=== PATIENT | female | born 1960 | race Caucasian/White ===

== ENCOUNTER → 2017-06-30 10:02 | Outpatient (CLI) | payer OTHER, SELFPAY ==
[2017-06-30 12:28] LABS: Anion Gap 6 (5-15); BUN 10 mg/dL (7-18); BUN/Creat Ratio 15.3 RATIO (10-20); Calcium,Total 9.3 mg/dL (8.5-10.1); Chloride 100 mmol/L (98-107); Creatinine, Serum 0.65 mg/dL (0.55-1.02); EST Glomerular Filtration Rate 99 mL/min (>60); Est Glom Filt Rate - Afr Amer 120 mL/min (>60); Free T3 2.7 pg/mL (2.18-3.98); Glucose 95 mg/dL (74-106); Sodium Level 137 mmol/L (136-145); T4 Free Direct 1.24 ng/dL (0.76-1.46); Thyroid Stim Hormone (TSH) < 0.01 uIU/mL (0.358-3.74)
== END ==
PROVIDERS: Family Provider Family Medicine; PCP Family Medicine; Visit Provider Family Medicine
DX: I10 Essential (primary) hypertension (principal); E03.9 Hypothyroidism, unspecified
CPT/HCPCS: 36415; 80048; 84439; 84443; 84481

== ENCOUNTER → 2019-01-23 11:16 | Outpatient (CLI) | payer OTHER, SELFPAY ==
[2018-07-08 08:02] VITALS: BMI 21.9
[2019-01-23 12:32] LABS: Microalbumin,Random Urine < 5.0 mg/L (NO RANGE EST.)
[2019-01-23 12:47] LABS: Anion Gap 3 (5-15); BUN 12 mg/dL (7-18); BUN/Creat Ratio 14.7 RATIO (10-20); Chloride 99 mmol/L (98-107); Cholesterol 317 mg/dL (200); Creatinine, Serum 0.82 mg/dL (0.55-1.02); EST Glomerular Filtration Rate 76 mL/min (>60); Est Glom Filt Rate - Afr Amer 92 mL/min (>60); Free T3 1.3 pg/mL (2.18-3.98); Glucose 94 mg/dL (74-106); High Density Lipoprotein 74 mg/dL; Potassium 3.3 mmol/L (3.5-5.1); Sodium Level 135 mmol/L (136-145); T4 Free Direct 0.32 ng/dL (0.76-1.46)
== END ==
PROVIDERS: Family Provider Family Medicine; PCP Family Medicine; Referring Provider Family Medicine; Visit Provider Family Medicine
DX: I10 Essential (primary) hypertension (principal); E03.9 Hypothyroidism, unspecified
CPT/HCPCS: 36415; 80048; 82043; 82465; 82570; 83718; 84439; 84443; 84481

== ENCOUNTER → 2019-04-04 15:53 | Outpatient (CLI) | payer OTHER, SELFPAY ==
[2018-07-08 08:02] VITALS: BMI 21.9
[2019-04-04 20:27] LABS: Absolute Neutrophil Count 3.3 X10^3/uL (2.0-7.7); Basophil# 0.07 X10^3/uL; Basophil% 1.2 % (0-1); Eosinophil# 0.13 X10^3/uL; Eosinophils% 2.2 % (0-5); Hematocrit 37.3 % (37-47); Hemoglobin 12.7 g/dL (12.0-15.0); Lymphocyte % 30.3 % (19-41); Mean Corpuscular Hgb 31.6 pg (27.0-32.0); Mean Corpuscular Volume 92.8 fL (81-99); Mean Platelet Vol. 9.7 fl (6.2-12.0); Monocyte# 0.61 X10^3/uL; Monocyte% 10.3 % (0-10); NRBC Flagged by Analyzer 0 % (0-5); Neutrophil # 3.33 X10^3/uL (2.7-7.7); Neutrophil % 55.8 % (47-70); Platelet Count 276 K/mm3 (150-450); RBC Distribution Width CV 11.8 % (11.6-14.6); RBC Distribution Width SD 39.7 fl (35.1-43.9); Red Blood Count 4.02 M/mm3 (4.2-5.4)
[2019-04-04 21:12] LABS: Rheumatoid Factor < 10.0 IU/mL (<15)
[2019-04-05 13:20] LABS: T4 Free Direct 1.13 ng/dL (0.76-1.46); Thyroid Stim Hormone (TSH) 1.14 uIU/mL (0.358-3.74)
[2019-04-06 15:09] LABS: ANTINUCLEAR ANTIBODIES DIRECT Negative (Negative)
== END ==
LOC: LAB.FUTURE 15:56 → LAB 04-05 12:35
PROVIDERS: PCP Family Medicine; Referring Provider Family Medicine; Visit Provider Family Medicine
DX: M25.50 Pain in unspecified joint (principal); E03.9 Hypothyroidism, unspecified
CPT/HCPCS: 36415; 84439; 84443; 85025; 86038; 86431

== ENCOUNTER 2019-08-05 16:14 | Observation (INO) | payer OTHER, SELFPAY ==
[2018-07-08 08:02] VITALS: BMI 21.9
[2019-08-05] VITALS (10 sets, daily range): BP systolic 139–212; BP diastolic 87–126; PULSE 60–89; RESP 15–17; TEMP 36.2–36.9; O2SAT 97–99; BMI 23.7; BMI 23.6
--- NOTE | 2019-08-05 16:26 | RAD_ITS ---
STUDY: X-RAY CHEST REASON FOR EXAM: Female, 59 years old. HYPERTENSION. -- TACHYCARDIA WITH ACTIVITY -- IRREGULAR HR -- INTERMITTENT SOB AND DRY COUGH -- TESTED NEG ON FRIDAY TECHNIQUE: Single AP portable upright view of the chest. COMPARISON: None. FINDINGS: The lungs are clear and expanded. There is no demonstrated pleural abnormality. Normal size heart. Minor fullness of the right cardiophrenic angle is likely an epicardial fat pad. Normal mediastinum and mandie. Normal visualized pulmonary arteries. Normal visualized aortic arch and descending thoracic aorta. Normal visualized thoracic spine. Normal visualized ribs, clavicles, and shoulders. There is no demonstrated abnormality of the visualized soft tissue structures of the upper abdomen. RAD/Chest 1 View (Portable) IMPRESSION: No acute cardiopulmonary disease. Electronically Signed: Herson Carrera MD at 17:19 EDT , Service support ,
--- NOTE | 2019-08-05 16:26 | EKG12_ITS ---
Test Reason : SOB Blood Pressure : / mmHG Vent. Rate : 078 BPM Atrial Rate : 078 BPM P-R Int : 146 ms QRS Dur : 102 ms QT Int : 406 ms P-R-T Axes : 046 002 059 degrees QTc Int : 462 ms Sinus rhythm with frequent Premature ventricular complexes Possible Left atrial enlargement Nonspecific ST abnormality Abnormal ECG Confirmed by JANNA MICHELE, CARO ([id number]), publications editor ADAM PERALTA ([id number]) on 08/10/2019 10:54:55 AM Referred By: JANETT Confirmed By:CARO SALDIVAR MD
--- NOTE | 2019-08-05 16:31 | ED.DCSUM_ITS ---
History of Present Illness Chief Complaint: Shortness of Breath Informant: Patient Onset: Days Context: Gradual Onset Timing: Intermittent Current Severity: Moderate Maximum Severity: Moderate Narrative: The patient is a 59-year-old female with medical history significant for hypertension the presents to the emergency department shortness of breath, irregular heart rhythm, and generalized malaise. The patient is very active at baseline. She normally bicycles 15 to 20 miles a day. She states over the past week, she has been able to catch her breath with exertion. 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 With her symptoms, she was tested for COVID and was negative. Today, she was feeling more dyspneic and took her blood pressure. It was 200 systolic. She is on an arm and has been compliant with it. She denies chest pain. She does admit to family history of atrial fibrillation. She denies any pleuritic pain or orthopnea. She denies any weight gain. Prior similar symptoms: No Recent Illness/Hospitalization: No Past Medical History - Allergies and Home Meds Allergies/Adverse Reactions: Allergies cefazolin [From [facility]] Allergy (Verified 08/05/19 16:15) Rash lisinopril Allergy (Verified 08/05/19 16:15) Unknown Penicillins Allergy (Verified 08/05/19 16:15) Rash Primary Care Physician: Lee Montelongo MD [Primary Care Provider] - Prior records reviewed: Yes Past Medical History: - - Hypertension, hypothyroidism Surgical History: noncontributory Smoking Status: Former smoker Review of Systems General: Denies: Chills, Fever, Sweats Eyes: Denies: Visual changes - bilaterally, Diplopia ENT: Denies: Rhinorrhea, Sore throat Cardiovascular: Reports: Palpitations, Heart racing. Denies: Chest pain Respiratory: Reports: Dyspnea, Cough. Denies: Dyspnea on exertion Gastrointestinal: Denies: Abdominal pain, Nausea, Vomiting, Diarrhea, Melena, Hematochezia Genitourinary: Denies: Dysuria, Hematuria, Frequency Musculoskeletal: Denies: Back pain, Extremity Pain Skin: Denies: Rash, Wounds Neurological: Denies: Headache, Weakness, Numbness Physical Exam Vital Signs/Narrative: Vital Signs Temp Pulse Resp BP Pulse Ox 08/05/19 16:28 212/126 H 08/05/19 16:16 97.4 F L 62 17 204/101 H 98 Inital Vital Signs reviewed: Yes General: Well nourished, Well developed, No Acute Distress Head: Normocephalic, Atraumatic Eyes: Perrl, EOMI ENT: Moist mucous membranes, No rhinorrhea Neck: Supple, Nontender Cardiovascular: Regular rate, Regular rhythm, No murmurs Respiratory: No distress, CTA bilaterally, Chest nontender Abdomen: Soft, Nontender, Nondistended, Normal bowel sounds Back: Nontender, Normal Inspection Extremities: Nontender, No edema Skin: Normal color, No rash Neurological: Alert, Oriented x3, Cranial nerves II-XII grossly intact, Normal Strength, Normal Sensation Psychological: Normal affect, Normal Mood Diagnostic/Tx/Re-eval Clinical Impression(s) from Imaging Studies Chest X-Ray 08/05/19 16:26 IMPRESSION: No acute cardiopulmonary disease. Electronically Signed: Herson Carrera MD at 17:19 EDT , Service support , Abnormal Lab Results 08/05/19 08/05/19 08/05/19 16:40 16:40 16:40 WBC 5.6 RBC 4.37 Hgb 14.5 Hct 40.2 MCV 92.0 MCH 33.2 H MCHC 36.1 H RDW Std Deviation 39.1 RDW Coeff of Octavia 11.5 L Plt Count 250 MPV 10.2 Immature Gran % (Auto) 0.400 Neut % (Auto) 58.4 Lymph % (Auto) 27.8 [place] % (Auto) 11.1 H Eos % (Auto) 1.6 Baso % (Auto) 0.7 Absolute Neuts (auto) 3.3 Absolute Lymphs (auto) 1.55 Nucleated RBC % 0 D-Dimer Quant (PE/DVT) 0.33 Sodium 134 L Potassium 3.1 L Chloride 99 Carbon Dioxide 27.0 Anion Gap 8 BUN 12 Creatinine 0.58 Estim Creat Clear Calc 95.35 Est GFR (MDRD) Af Amer 135 Est GFR (MDRD) Non-Af 111 BUN/Creatinine Ratio 20.5 H Glucose 111 H Calcium 9.1 Magnesium 1.9 Total Bilirubin 0.60 AST 22 ALT 24 Alkaline Phosphatase 88 Troponin I < 0.015 Total Protein 7.2 Albumin 4.3 Globulin 2.9 Albumin/Globulin Ratio 1.5 TSH 0.91 - Medical Decision Making The patient presents with exertional dyspnea and irregular heart rhythm. EKG was obtained which showed sinus rhythm with occasional PVCs intermixed with bigeminy. Patient was markedly hypertensive on arrival. I was hesitant to aggressively treat her blood pressure given the PVCs and bigeminy. Screening labs are obtained. Cardiac enzymes were negative. D-dimer was negative. Chest x-ray shows no focal infiltrative process or evidence of volume overload. The patient was found to be hypokalemic. She was given oral clonidine and her repeat blood pressure was 180 systolic. I do have concern given her significant exertional dyspnea coupled with her bigeminy. She states that she is also had t imes where her heart rate has been in the 40s. At this point I do feel the most prudent plan of care would be to admit the patient for continues cardiac monitoring and likely echocardiogram. The patient was discussed with the hospitalist. Impression 1. Exertional dyspnea 2. Hypertension 3. Hypokalemia ED Disposition - Plan for ED Patient: Referrals: Lee Montelongo MD [Primary Care Provider] -
[2019-08-05] MEDS: cloNIDine HCl 0.1 MG Tablet PO (16:56)
[2019-08-05 17:13] LABS: Absolute Lymphocyte Count 1.55 X10^3/uL (0.83-4.51); Absolute Neutrophil Count 3.3 X10^3/uL (2.0-7.7); Basophil# 0.04 X10^3/uL; Basophil% 0.7 % (0-1); Eosinophil# 0.09 X10^3/uL; Eosinophils% 1.6 % (0-5); Hematocrit 40.2 % (37-47); Hemoglobin 14.5 g/dL (12.0-15.0); Lymphocyte # 1.55 X10^3/ul (4.0); Lymphocyte % 27.8 % (19-41); Mean Corp Hgb Conc 36.1 g/dL (32-36); Mean Corpuscular Hgb 33.2 pg (27.0-32.0); Mean Platelet Vol. 10.2 fl (6.2-12.0); Monocyte# 0.62 X10^3/uL; Monocyte% 11.1 % (0-10); NRBC Flagged by Analyzer 0 % (0-5); Neutrophil # 3.25 X10^3/uL (2.7-7.7); Neutrophil % 58.4 % (47-70); Platelet Count 250 K/mm3 (150-450); RBC Distribution Width CV 11.5 % (11.6-14.6); RBC Distribution Width SD 39.1 fl (35.1-43.9); Red Blood Count 4.37 M/mm3 (4.2-5.4); White Blood Count 5.6 K/mm3 (4.4-11.0)
[2019-08-05 17:14] LABS: D-Dimer Quantitative (DVT/PE) 0.33 FEU/ug/m (0.27-0.49)
[2019-08-05 17:27] LABS: ALB/GLOB Ratio 1.5 RATIO (0.9-2.4); AST(SGOT) 22 U/L (15-37); Alanine Aminotransfer ALT/SGPT 24 U/L (13-56); Albumin, Serum 4.3 g/dL (3.2-5.0); Alkaline Phosphatase 88 U/L (45-117); Anion Gap 8 (5-15); BUN 12 mg/dL (7-18); BUN/Creat Ratio 20.5 RATIO (10-20); Calcium,Total 9.1 mg/dL (8.5-10.1); Chloride 99 mmol/L (98-107); Creatinine, Serum 0.58 mg/dL (0.55-1.02); EST Glomerular Filtration Rate 111 mL/min (>60); Est Glom Filt Rate - Afr Amer 135 mL/min (>60); Estimated Creatinine Clearance 95.35 ml/min; Globulin 2.9 g/dL (2.2-4.2); Glucose 111 mg/dL (74-106); Magnesium 1.9 mg/dL (1.6-2.6); Potassium 3.1 mmol/L (3.5-5.1); Protein, Total 7.2 g/dL (6.4-8.2); Sodium Level 134 mmol/L (136-145); Thyroid Stim Hormone (TSH) 0.91 uIU/mL (0.358-3.74)
[2019-08-05 17:37] LABS: BNP,B-Type NATRIURETIC PEPTIDE 204.2 pg/mL (0-100)
--- NOTE | 2019-08-05 18:14 | HP.PCM_ITS ---
Problem List (1) HTN (hypertension) Status: Chronic (2) Atrial bigeminy Status: Acute History of Present Illness Date of Admission: 08/05/19 Chief Complaint: elevated BP The patient is a 59 year old F who presented to the ED with SOB, irregular HR and malaise. She states that is started about a week ago. She typically is very active and rides her bike 15-20 mild per day but the last day she was able to do so was on Friday. She was tested for COVID-19 5 days ago and was negative at that time (her son recently had COVID-19). She does admit to fatigue and diarrhea as well. She is on RA with SpO2 of 98-99. She has no white count and her D-dimer is WNL. Her other labs are relatively benign and the only sig abnormalities are mild hypokalemia and hyponatremia. VS are stable except for a marked elevation in her BP. She states that she has HTN at baseline but only takes Losartan 50 mg daily. She states that she usually runs about 120's over upper 70's. Today she is in the 200's over 100's. She was given clonidine by the ED and this has brought her BP down to 180-190's systolic. Her troponin is negative and her TSH is WNL. Past Medical History Past Medical History (Chronic Problems): Chronic Problems (Last Reviewed 07/08/18 @ 08:04 by Stephanie Crocker) HTN (hypertension) (Chronic) Medical History: Medical History (Last Reviewed 07/08/18 @ 08:04 by Stephanie Crocker) Diarrhea R19.7 Fatigue R53.83 Knee pain M25.569 Limb weakness R29.898 Shoulder pain M25.519 Thyroid disease E07.9 Hypertension I10 Allergies cefazolin [From [facility]] Allergy (Verified 08/05/19 16:15) Rash lisinopril Allergy (Verified 08/05/19 16:15) Unknown Penicillins Allergy (Verified 08/05/19 16:15) Rash Home Medications: Ambulatory Orders Medication Instructions Recorded Famotidine [Pepcid] 20 mg PO BID #28 tab 06/26/16 Levothyroxine [Synthroid] 137 mcg PO DAILY 06/26/16 Sertraline HCl [Zoloft] 50 mg PO DAILY 06/26/16 Aspirin 81 mg PO 08/05/19 Indapamide 2.5 mg PO 08/05/19 Losartan Potassium 50 mg PO DAILY 08/05/19 Surgical History: Surgical History (Last Reviewed 07/08/18 @ 08:04 by Stephanie Crocker) Hx of section Z98.891 Hx of hysterectomy Z90.710 Surgical History: noncontributory Smoking Status: Former smoker Review of Systems Constitutional: Reports: Malaise, Fatigue. Denies: Anorexia, Chills, Fever, Night Sweats, Weakness, Weight Change Eyes: Denies: Blurred vision, Drainage, Pain, Redness HEENT: Denies: Difficulty Swallowing, Dysphasia, Ear Pain, Nasal Congestion, Sinus Drainage, Sore Throat Cardiovascular: Denies: Chest Pain, Claudication, Chest Pressure, Chest Tightness, Edema, Heaviness, Light Headedness, Orthopnea, Palpitations, Paroxysmal Noc. Dyspnea, Syncope Respiratory: Reports: Shortness of Breath, Shortness of breath upon exertion. Denies: Cough, Hemoptysis, Pleuritic Pain, Shortness of breath at rest, Sputum production, Wheezing Gastrointestinal: Reports: Diarrhea - last 2 days. Denies: Abdominal Pain, Constipation, Dyspepsia, Hematemesis, Hematochezia, Nausea, Melena, Vomiting Genitourinary: Denies: Dysuria, Frequency, Hematuria, Hesitancy, Incontinence, Nocturia, Retention, Urgency Musculoskeletal: Reports: Muscle pain. Denies: Back Pain, Joint Pain, Joint stiffness, Joint swelling, Joint Tenderness, Neck Pain Skin: Denies: Dryness, Jaundice, Lesions, Pruritis, Rash, Skin Changes, Wounds Neurological: Reports: Headaches. Denies: Balance problems, Double vision, Confusion, Focal weakness, Incoordination, Numbness, Tingling, Tremor, Seizures Psychiatric: Reports: Depression. Denies: Anxiety Endocrine: Denies: Change in Body Habitus, Heat/ Cold Intolerance, Polydipsia, Polyuria Hematologic/ Lymphatic: Denies: Adenopathy, Anemia, Easy Bruising, Easy Bleeding, Petechiae, Purpura VTE Information - Inpt Only VTE Present on Admission: No VTE Mechan Device Prophylaxis: None VTE Pharm Prophylaxis ordered?: No Patient Problems: Active and Suspected Problems (Last Reviewed 07/08/18 @ 08:04 by Stephanie Crocker) Atrial bigeminy (Acute) - Physical Exam Vitals/I&O's: Vital Signs Temp Pulse Resp BP Pulse Ox 98.5 F 89 15 196/126 H 99 08/05/19 18:07 08/05/19 18:07 08/05/19 18:07 08/05/19 18:07 08/05/19 18:07 Oxygen Delivery Method Room Air Weight: 66.6 kg Body Mass Index (BMI) 23.7 General: Alert, Oriented x3, Cooperative, No apparent distress, Well developed, Well nourished, - - WF sitting up in bed, son at bedside, tearful when talking about her grandchild HEENT: Atraumatic, PERRLA, EOMI, Normocephalic, EAC Clear Neck: Supple, No JVD, Negative Carotid Bruits, Negative Hepatojugular Reflux, No Nodes, No Nuchal Rigidity, Trachea Midline, Thyroid Normal Size and Texture Lungs: Clear to auscultation, Normal air movement, No rhonchi, No wheeze, No rales Cardiovascular: Regular rate, Regular Rhythm, Normal S1, Normal S2, No murmurs, No rub noted, - - +S4, frequent ectopy Abdomen: Bowel Sounds Present, Soft, Non Tender, Non-Distended, No Hepato- splenomegaly, No hernias noted Extremities: No clubbing, No cyanosis, No edema, Capillary Refill Less than 3 Seconds, Peripheral Pulses Normal Skin: No rashes, No breakdown Musculoskeletal: No Tenderness to Palpation of Joints or Extremities, No Muscle Wasting, Arthritic Changes - B Hands Lymphatic: No Cervical, Supraclavicular, or Inguinal Adenopathy Neurological: Cranial nerves II-XII grossly intact, Deep Tendon Reflexes 2+/4 and Symmetrical, Neuro grossly intact, Motor Exam 5/5 strength throughout, Muscle tone normal, Sensory exam intact to light touch and pain, Coordination normal Psych/Mental Status: Normal Affect, Appropriate, Alert and oriented to time, place, person, mood and affect Laboratory Results 08/05/19 16:40: WBC 5.6, RBC 4.37, Hgb 14.5, Hct 40.2, MCV 92.0, MCH 33.2 H, MCHC 36.1 H, RDW Std Deviation 39.1, RDW Coeff of Octavia 11.5 L, Plt Count 250, MPV 10.2, Immature Gran % (Auto) 0.400, Neut % (Auto) 58.4, Lymph % (Auto) 27.8, [place] % (Auto) 11.1 H, Eos % (Auto) 1.6, Baso % (Auto) 0.7, Absolute Neuts (auto) 3.3, Absolute Lymphs (auto) 1.55, Nucleated RBC % 0 08/05/19 16:40: D-Dimer Quant (PE/DVT) 0.33 08/05/19 16:40: Sodium 134 L, Potassium 3.1 L, Chloride 99, Carbon Dioxide 27.0, Anion Gap 8, BUN 12, Creatinine 0.58, Estim Creat Clear Calc 95.35, Est GFR (MDRD) Af Amer 135, Est GFR (MDRD) Non-Af 111, BUN/Creatinine Ratio 20.5 H, Glucose 111 H, Calcium 9.1, Magnesium 1.9, Total Bilirubin 0.60, AST 22, ALT 24, Alkaline Phosphatase 88, Troponin I < 0.015, Total Protein 7.2, Albumin 4.3, Globulin 2.9, Albumin/Globulin Ratio 1.5, TSH 0.91 08/05/19 16:40: B-Natriuretic Peptide 204.2 H Assessment/Plan All Active Problems (Last Reviewed 07/08/18 @ 08:04 by Stephanie Crocker) Atrial bigeminy (Acute) Conjunctivitis, left eye (Acute) Sinusitis, acute maxillary (Acute) Bronchitis (Acute) Gastroenteritis (Acute) HTN Urgency -start metoprolol 25 mg BID (should help with bigeminy as well) -continue losartan -low Na diet -prn hydralazine 5 mg for SBP > 180 -goal BP range 160-180 today -TSH WNL -Check ECHO -cycle troponin Atrial Bigeminy -electrolye replacement -BB -Check Echo COVID-19 exposure -pt not with typical presentation but with aches/malaise and high risk-->will repeat -COVID neg 5 days ago -airborne precautions Hypokalemia -replace and recheck in am -Mag is WNL Hyponatremia -repeat in am Hypothyroidism -continue Synthroid DVT prophylaxis -none needed Code Status -Full Inpatient E&M: 30654 Init Hosp L3
--- NOTE | 2019-08-05 18:19 | ECHOD_ITS ---
Reason For Study: HTN Procedure This was a 2D Doppler, Color Flow transthoracic echocardiogram. The study was technically difficult. Poor apical imaging due to breast augmentation. The exam was abbreviated due to the COVID 19 protocol. Left Ventricle Normal LV size. The estimated ejection fraction is 55 %. No evidence for diastolic dysfunction. No regional wall motion abnormalities noted. Right Ventricle Normal RV size. Normal systolic function. Atria Normal left atrium. Normal right atrium. No doppler evidence for ASD. Mitral Valve There is no mitral valve stenosis. No mitral valve insufficiency. Tricuspid Valve There is no tricuspid stenosis. Unable to estimate RV systolic pressure due to inadequate jet, pulmonary artery pressure probably normal. No tricuspid valve insufficiency. Aortic Valve There is no aortic stenosis. Trivial aortic valve insufficiency. Pulmonic Valve There is no pulmonic valvular stenosis. No pulmonic valve insufficiency. Great Vessels Normal aortic root. Pericardium/Pleural No pericardial effusion. MMode/2D Measurements & Calculations LVIDd: 4.7 cm IVSd: 1.2 cm Ao root diam: 3.2 cm LVIDs: 3.6 cm LVPWd: 1.1 cm LA dimension: 2.9 cm FS: 22.6 % LAV(MOD-sp4): 28.9 ml LA A4 area: 12.6 cm2 Doppler Measurements & Calculations Lat Peak E' Edouard: 3.6 cm/sec Med Peak E' [place]ouard: 2.8 cm/sec PA V2 max: 79.7 cm/sec PI end-d edouard: 53.1 cm/sec Interpretation Summary The estimated ejection fraction is 55 %. No evidence for diastolic dysfunction. Trivial aortic valve insufficiency. Ordering Physician: Haydee May Referring Physician: DARRICK FLORES Performed By: Yara Malin, ANDREW, RVT
--- NOTE | 2019-08-05 18:52 | NURSING ---
patient going to ICU1 due to covid testing
--- NOTE | 2019-08-05 18:54 | NURSING ---
Report called to ICU nurse for pt transfer.
[2019-08-05] MEDS: Acetaminophen 325 MG Tablet 650 MG PO (20:37)
[2019-08-05] MEDS: Metoprolol Tartrate 25 MG Tablet PO (21:43)
[2019-08-05] MEDS: Famotidine 20 MG Tablet PO (21:43)
[2019-08-06] VITALS (9 sets, daily range): BP systolic 125–137; BP diastolic 63–97; PULSE 61–76; RESP 14–17; TEMP 36.3–36.7; O2SAT 93–99
[2019-08-06] MEDS: 0.9% Saline Lock 10 ML Syringe IV (04:41)
[2019-08-06 04:50] LABS: Absolute Neutrophil Count 1.7 X10^3/uL (2.0-7.7); Basophil# 0.05 X10^3/uL; Basophil% 1.2 % (0-1); Eosinophil# 0.13 X10^3/uL; Eosinophils% 3.1 % (0-5); Hematocrit 41.4 % (37-47); Lymphocyte % 41.2 % (19-41); Mean Corp Hgb Conc 33.8 g/dL (32-36); Mean Corpuscular Volume 94.7 fL (81-99); Mean Platelet Vol. 9.7 fl (6.2-12.0); Monocyte% 12.1 % (0-10); NRBC Flagged by Analyzer 0 % (0-5); Neutrophil # 1.74 X10^3/uL (2.7-7.7); Neutrophil % 42.2 % (47-70); Platelet Count 237 K/mm3 (150-450); RBC Distribution Width CV 11.9 % (11.6-14.6); RBC Distribution Width SD 41.3 fl (35.1-43.9); Red Blood Count 4.37 M/mm3 (4.2-5.4); White Blood Count 4.1 K/mm3 (4.4-11.0)
[2019-08-06 05:13] LABS: Anion Gap 7 (5-15); BUN 10 mg/dL (7-18); BUN/Creat Ratio 17.5 RATIO (10-20); Chloride 103 mmol/L (98-107); Creatinine, Serum 0.57 mg/dL (0.55-1.02); EST Glomerular Filtration Rate 115 mL/min (>60); Est Glom Filt Rate - Afr Amer 139 mL/min (>60); Estimated Creatinine Clearance 97.03 ml/min; Glucose 98 mg/dL (74-106); Potassium 4.1 mmol/L (3.5-5.1); Sodium Level 139 mmol/L (136-145)
[2019-08-06] MEDS: Levothyroxine 137 MCG Tablet PO (06:56)
--- NOTE | 2019-08-06 06:57 | PN_ITS ---
Patient Problems: Active and Suspected Problems (Last Reviewed 07/08/18 @ 08:04 by Stephanie Crocker) Atrial bigeminy (Acute) Vitals/I&O's: Vital Signs Temp Pulse Resp BP Pulse Ox 98.1 F 67 17 126/90 H 97 08/06/19 04:48 08/06/19 04:09 08/06/19 04:09 08/06/19 04:09 08/06/19 04:09 Oxygen Delivery Method Room Air Weight: 146 lb Body Mass Index (BMI) 23.6 Intake and Output for Last 24 Hours 08/04/19 08/05/19 08/06/19 23:59 23:59 23:59 Intake Total 440 / 440 240 / 240 Balance 440 / 440 240 / 240 Laboratory Results 08/05/19 16:40: WBC 5.6, RBC 4.37, Hgb 14.5, Hct 40.2, MCV 92.0, MCH 33.2 H, MCHC 36.1 H, RDW Std Deviation 39.1, RDW Coeff of Octavia 11.5 L, Plt Count 250, MPV 10.2, Immature Gran % (Auto) 0.400, Neut % (Auto) 58.4, Lymph % (Auto) 27.8, [place] % (Auto) 11.1 H, Eos % (Auto) 1.6, Baso % (Auto) 0.7, Absolute Neuts (auto) 3.3, Absolute Lymphs (auto) 1.55, Nucleated RBC % 0 08/05/19 16:40: D-Dimer Quant (PE/DVT) 0.33 08/05/19 16:40: Sodium 134 L, Potassium 3.1 L, Chloride 99, Carbon Dioxide 27.0, Anion Gap 8, BUN 12, Creatinine 0.58, Estim Creat Clear Calc 95.35, Est GFR (MDRD) Af Amer 135, Est GFR (MDRD) Non-Af 111, BUN/Creatinine Ratio 20.5 H, Glucose 111 H, Calcium 9.1, Magnesium 1.9, Total Bilirubin 0.60, AST 22, ALT 24, Alkaline Phosphatase 88, Troponin I < 0.015, Total Protein 7.2, Albumin 4.3, Globulin 2.9, Albumin/Globulin Ratio 1.5, TSH 0.91 08/05/19 16:40: B-Natriuretic Peptide 204.2 H 08/05/19 19:10: Troponin I < 0.015 08/05/19 19:30: COVID-19 (BRINDA) Not Detected 08/05/19 21:50: Troponin I < 0.015 08/06/19 04:40: WBC 4.1 L, RBC 4.37, Hgb 14.0, Hct 41.4, MCV 94.7, MCH 32.0, MCHC 33.8 D, RDW Std Deviation 41.3, RDW Coeff of Octavia 11.9, Plt Count 237, MPV 9.7, Immature Gran % (Auto) 0.200, Neut % (Auto) 42.2 L, Lymph % (Auto) 41.2 H, [place] % (Auto) 12.1 H, Eos % (Auto) 3.1, Baso % (Auto) 1.2 H, Absolute Neuts (auto) 1.7 L, Absolute Lymphs (auto) 1.70, Nucleated RBC % 0 08/06/19 04:40: Sodium 139, Potassium 4.1, Chloride 103, Carbon Dioxide 29.0, Anion Gap 7, BUN 10, Creatinine 0.57, Estim Creat Clear Calc 97.03, Est GFR (MDRD) Af Amer 139, Est GFR (MDRD) Non-Af 115, BUN/Creatinine Ratio 17.5, Glucose 98, Calcium 9.0 Current Medications Acetaminophen (Tylenol) 650 mg PO Q6H PRN PRN PRN Reason: Pain Score 1-10/Temp > 100.7 F Last Admin: 08/05/19 20:37 Dose: 650 mg Documented by: Al Hydroxide/Mg Hydroxide (Mylanta Ii) 30 ml PO Q6H PRN PRN PRN Reason: Gastric Burning Dextrose (D50w Syringe) 0 gm IV X1 PRN; Protocol PRN Reason: Hypoglycemia Famotidine (Pepcid) 20 mg PO BID [facility] Last Admin: 08/05/19 21:43 Dose: 20 mg Documented by: Glucagon () 1 mg IM .X1 PRN PRN Reason: Hypoglycemia Hydralazine HCl (Apresoline Iv) 5 mg IV Q4H PRN PRN PRN Reason: SBP GREATER THAN 180 Levothyroxine Sodium (Synthroid) 137 mcg PO DAILY@0600 [facility] Last Admin: 08/06/19 06:56 Dose: 137 mcg Documented by: Loratadine (Claritin) 10 mg PO DAILY [facility] Losartan Potassium (Cozaar) 50 mg PO DAILY [facility] Melatonin (Melatonin) 3 mg PO QHS PRN PRN PRN Reason: INSOMNIA Metoprolol Tartrate (Lopressor (Beta Ernestine)) 25 mg PO BID [facility] Last Admin: 08/05/19 21:43 Dose: 25 mg Documented by: Ondansetron HCl (Zofran) 4 mg IV Q8H PRN PRN PRN Reason: NAUSEA/VOMITING Sertraline HCl (Zoloft) 50 mg PO DAILY [facility] Sodium Chloride () 10 - 40 ml IV UD PRN PRN Reason: SALINE FLUSH Last Admin: 08/06/19 04:41 Dose: 20 ml Documented by: STROKE Vital Signs/Narrative: Vital Signs Temp Pulse Resp BP Pulse Ox 08/06/19 04:48 98.1 F 08/06/19 04:09 67 17 126/90 H 97 08/06/19 03:23 69 Medical Necessity - Tobacco Use Smoking Status: Former smoker Tobacco Use: Cigarettes Assessment/Plan All Active Problems (Last Reviewed 07/08/18 @ 08:04 by Stephanie Crocker) Atrial bigeminy (Acute) Conjunctivitis, left eye (Acute) Sinusitis, acute maxillary (Acute) Bronchitis (Acute) Gastroenteritis (Acute)
[2019-08-06 07:29] LABS: SARS-COV-2 TOTAL ABS Nonreactive (Nonreactive)
--- NOTE | 2019-08-06 08:27 | PCM.DC ---
- Discharge Diagnoses Current Active Problems: Current Active and Chronic Problems (Last Reviewed 07/08/18 @ 08:04 by Stephanie Crocker) 1. Hypertensive urgency (suspected associated with #3) 2. Atrial bigeminy (suspected associated with #3) 3. Suspected COVID-19 with ill contacts despite negative testing (Headache, myalgia, arthralgia, fontal headaches, malaise/fatigue, nausea without emesis, loose stools, abdominal cramping sharp pain) 4. Hypokalemia, resolved 5. Hyponatremia, likely secondary to diuretic and possibly SSRI 6. Hypothyroidism 7. Depression 8. GERD You will use the following diet at home:: Cardiac Your food should be the consistency of: Regular Your liquids should be the consistency of: Regular/Thin Discharge Activity: - - Please abide by continued quarantine parameters until completion on 08/11/19 per discussions. Please avoid aggressive activity until clinically improved and assure blood pressures remain appropriate. May resume sexual activity in: - - Avoid until complete quarantine. Weight Bearing Status: Weight bearing as tolerated Call your doctor if you observe: Fever of 101 or Higher, Inability to urinate, Inability to have a bowel movement, Shortness of breath, Dizziness, Fainting spells, Chest pain, Uncontrolled pain Instructions: Controlling High Blood Pressure, Low-Salt Choices, Taking Blood Pressure Medications Additional Instructions: Hypertension, Bigeminy: During the admission you had significantly elevated blood pressures and bigeminy/abnormal rhythm noted on EKG and telemetry monitoring. Clinically improved with alteration to your blood pressure regimen including continue losartan and addition of metoprolol. Your diuretic was held to avoid low blood pressure and also to assist in improving your sodium level. Please continue to trend blood pressures outpatient with your primary care physician and if appropriate you may add your diuretic back. COVID Home going instructions: ?Please continue similar isolation as in hospital and those also in the home to continue precautions until isolation complete given high suspicion despite negative testing. ?Please continue twice daily temperature checks, in the AM and evening and notify the health department/primary care of any changes. Transmission-based Precaution Timeline: ?Patients with a confirmed or high suspicion of COVID-19 should remain under home isolation precautions for the recommended 2 week quarantine or if in health care 7 days with 3 additional asymptomatic days. This means that you have complete resolution of fever and symptoms are improving. Allergies/Adverse Reactions: Allergies cefazolin [From [facility]] Allergy (Verified 08/05/19 16:15) Rash lisinopril Allergy (Verified 08/05/19 16:15) Unknown Penicillins Allergy (Verified 08/05/19 16:15) Rash Medications to take at Discharge Levothyroxine [Synthroid] 137 mcg PO DAILY 06/26/16 Sertraline HCl [Zoloft] 50 mg PO DAILY 06/26/16 Aspirin 81 mg PO 08/05/19 Famotidine 40 mg PO DAILY 08/05/19 Losartan Potassium 50 mg PO DAILY 08/05/19 Metoprolol Tartrate [Lopressor (beta victorina)] 25 mg PO BID #60 tab 08/06/19 The following prescriptions were given: Metoprolol Tartrate [Lopressor (beta victorina)] 25 mg PO BID #60 tab Transmission Status: Pending to [facility] Primary Care Physician: Lee Montelongo MD [Primary Care Provider] - Please follow up with your Primary Care Physician in: Please follow-up within 3-5 days to review admission, med changes. Test Results: Test results from this visit will be discussed in further detail at your follow-up appointment, if applicable. Proposed Discharge Date: 08/06/19
--- NOTE | 2019-08-06 08:38 | PCM.DC.SUM ---
Discharge Date and Diagnosis - Problem List Patient Problems: Active and Suspected Problems (Last Reviewed 07/08/18 @ 08:04 by Stephanie Crocker) Atrial bigeminy (Acute) Date of Admission: 08/05/19 Date of Discharge: 08/06/19 - Primary Discharge Diagnosis Acute Problems: Active Problems (Last Reviewed 07/08/18 @ 08:04 by Stephanie Crocker) 1. Hypertensive urgency (suspected associated with #3) 2. Atrial bigeminy (suspected associated with #3) 3. Suspected COVID-19 with ill contacts despite negative testing (Headache, myalgia, arthralgia, fontal headaches, malaise/fatigue, nausea without emesis, loose stools, abdominal cramping sharp pain) 4. Hypokalemia, resolved 5. Hyponatremia, likely secondary to diuretic and possibly SSRI 6. Hypothyroidism 7. Depression 8. GERD - Secondary Discharge Diagnosis Chronic Problems: Chronic Problems (Last Reviewed 07/08/18 @ 08:04 by Stephanie Crocker) HTN (hypertension) (Chronic) Hospital Course and Treatment Operations: None Procedures: 2-D Echocardiogram, EKG Summary of Care Provided: The patient is a 59 y/o F w/ PMHx: HTN, Depression, Hypothyroidism, GERD noted to very active who presented to the [facility] ED on 08/05/19 with recent ill contact, her son who is COVID positive with onset approximately 6 days prior frontal headaches, nausea, abdominal cramping, loose stools, myalgias and arthralgias with dry cough and dyspnea but no alteration to sense of taste or smell with worsening symptoms and onset of elevated blood pressures at home with increased fatigue prompting ED presentation. In the ED patient oxygenation was appropriate, d-dimer was normal with labs notable for mild hypokalemia and hyponatremia with significantly elevated blood pressure with ED initiation of clonidine with systolic blood pressures in the 200s initially with unremarkable cardiac enzyme and EKG with noted bigeminy. Given patient symptom and presentation she was admitted to the COVID floor with continued telemetry monitoring, serial cardiac enzymes remained unremarkable, magnesium obtained and noted to be normal, TSH normal, COVID testing and serology obtained and both unremarkable but given symptoms suspect that patient does have COVID-19 infection and requested she continue quarantine parameters with an date 08/11/2019 as long as she has 3 days of clinical improvement. Given patient's significant hypertension (ED initial 204/101) and mild hyponatremia as well as bigeminy placed on metoprolol with continue losartan with clinical improvement and normalization of blood pressures with hold on patient's diuretic. Instructed patient to follow-up with primary care physician and continue losartan and metoprolol with addition back of patient's diuretic if clinically appropriate. Patient potassium supplemented and she was maintained also on IV fluids with normalization of her sodium and potassium levels. Echocardiogram obtained. Patient discharged home in improved stable condition with follow-up with primary care physician within 3 to 5 days. DAY OF DISCHARGE PROGRESS NOTE: Subjective: Patient without acute event overnight per self and nursing report. Patient notes resolution of frontal headache with still occasional dry cough and loose stool but no further nausea, abdominal cramping nor any specific dyspnea. She is never had any fevers. Did discuss that she is considered COVID positive despite negative COVID testing and antibody testing given symptoms and history with ill contacts. Patient denies fever, chills, recurrent nausea, emesis, abdominal pain, chest pain or dyspnea. Patient agreeable to discharge to home with medication regimen alteration as noted. Patient will be discharged with follow-up with primary care physician within 3-5 days. Objective: T 97.3, heart rate 72, BP 137/97, respiratory rate 14, 99% on room air. Physical Examination: General: awake, alert, oriented x 3 and cooperative, seated upright in the ICU bed, NAD. Skin: normal color, turgor, no icterus, cyanosis. HEENT: AT/NC, EOMI, PERRLA, MMM. Lungs: CTA bilaterally, moderate effort, mild decrease BL bases, no rales, ronchi or wheezing; Heart: Regular rate and rhythm; no gallop, rub audible. Abdomen: soft, NTTP, ND, normal BS. Extremities: no cyanosis, clubbing, or edema. Neurological: patient awake, alert, oriented x 3; cognitive function appears intact upon questioning,; pupils equally reactive to light and accomodation; cranial nerves II-XII grossly normal, moving all 4 extremities, strength improved, baseline. Psychiatric: affect appears mildly fatigued otherwise normal, no acute evidence of depressive or anxiety feelings. Assessment and Plan: Please see hospital summary above. Patient Problems: Active and Suspected Problems (Last Reviewed 07/08/18 @ 08:04 by Stephanie Crocker) Atrial bigeminy (Acute) - Physical Exam Vitals/I&O's: Vital Signs Temp Pulse Resp BP Pulse Ox 98.1 F 76 17 126/90 H 97 08/06/19 04:48 08/06/19 07:00 08/06/19 04:09 08/06/19 04:09 08/06/19 04:09 Oxygen Delivery Method Room Air Weight: 146 lb Body Mass Index (BMI) 23.6 Intake and Output for Last 24 Hours 08/04/19 08/05/19 08/06/19 23:59 23:59 23:59 Intake Total 440 / 440 240 / 240 Balance 440 / 440 240 / 240 Laboratory Results 08/05/19 16:40: WBC 5.6, RBC 4.37, Hgb 14.5, Hct 40.2, MCV 92.0, MCH 33.2 H, MCHC 36.1 H, RDW Std Deviation 39.1, RDW Coeff of Octavia 11.5 L, Plt Count 250, MPV 10.2, Immature Gran % (Auto) 0.400, Neut % (Auto) 58.4, Lymph % (Auto) 27.8, [place] % (Auto) 11.1 H, Eos % (Auto) 1.6, Baso % (Auto) 0.7, Absolute Neuts (auto) 3.3, Absolute Lymphs (auto) 1.55, Nucleated RBC % 0 08/05/19 16:40: D-Dimer Quant (PE/DVT) 0.33 08/05/19 16:40: Sodium 134 L, Potassium 3.1 L, Chloride 99, Carbon Dioxide 27.0, Anion Gap 8, BUN 12, Creatinine 0.58, Estim Creat Clear Calc 95.35, Est GFR (MDRD) Af Amer 135, Est GFR (MDRD) Non-Af 111, BUN/Creatinine Ratio 20.5 H, Glucose 111 H, Calcium 9.1, Magnesium 1.9, Total Bilirubin 0.60, AST 22, ALT 24, Alkaline Phosphatase 88, Troponin I < 0.015, Total Protein 7.2, Albumin 4.3, Globulin 2.9, Albumin/Globulin Ratio 1.5, TSH 0.91 08/05/19 16:40: B-Natriuretic Peptide 204.2 H 08/05/19 16:40: SARS Serology Nonreactive 08/05/19 19:10: Troponin I < 0.015 08/05/19 19:30: COVID-19 (BRINDA) Not Detected 08/05/19 21:50: Troponin I < 0.015 08/06/19 04:40: WBC 4.1 L, RBC 4.37, Hgb 14.0, Hct 41.4, MCV 94.7, MCH 32.0, MCHC 33.8 D, RDW Std Deviation 41.3, RDW Coeff of Octavia 11.9, Plt Count 237, MPV 9.7, Immature Gran % (Auto) 0.200, Neut % (Auto) 42.2 L, Lymph % (Auto) 41.2 H, [place] % (Auto) 12.1 H, Eos % (Auto) 3.1, Baso % (Auto) 1.2 H, Absolute Neuts (auto) 1.7 L, Absolute Lymphs (auto) 1.70, Nucleated RBC % 0 08/06/19 04:40: Sodium 139, Potassium 4.1, Chloride 103, Carbon Dioxide 29.0, Anion Gap 7, BUN 10, Creatinine 0.57, Estim Creat Clear Calc 97.03, Est GFR (MDRD) Af Amer 139, Est GFR (MDRD) Non-Af 115, BUN/Creatinine Ratio 17.5, Glucose 98, Calcium 9.0 Current Medications Acetaminophen (Tylenol) 650 mg PO Q6H PRN PRN PRN Reason: Pain Score 1-10/Temp > 100.7 F Last Admin: 08/05/19 20:37 Dose: 650 mg Documented by: Al Hydroxide/Mg Hydroxide (Mylanta Ii) 30 ml PO Q6H PRN PRN PRN Reason: Gastric Burning Dextrose (D50w Syringe) 0 gm IV X1 PRN; Protocol PRN Reason: Hypoglycemia Famotidine (Pepcid) 20 mg PO BID [facility] Last Admin: 08/05/19 21:43 Dose: 20 mg Documented by: Glucagon () 1 mg IM .X1 PRN PRN Reason: Hypoglycemia Hydralazine HCl (Apresoline Iv) 5 mg IV Q4H PRN PRN PRN Reason: SBP GREATER THAN 180 Levothyroxine Sodium (Synthroid) 137 mcg PO DAILY@0600 [facility] Last Admin: 08/06/19 06:56 Dose: 137 mcg Documented by: Loratadine (Claritin) 10 mg PO DAILY [facility] Losartan Potassium (Cozaar) 50 mg PO DAILY [facility] Melatonin (Melatonin) 3 mg PO QHS PRN PRN PRN Reason: INSOMNIA Metoprolol Tartrate (Lopressor (Beta Ernestine)) 25 mg PO BID MAIN Last Admin: 08/05/19 21:43 Dose: 25 mg Documented by: Ondansetron HCl (Zofran) 4 mg IV Q8H PRN PRN PRN Reason: NAUSEA/VOMITING Sertraline HCl (Zoloft) 50 mg PO DAILY [facility] Sodium Chloride () 10 - 40 ml IV UD PRN PRN Reason: SALINE FLUSH Last Admin: 08/06/19 04:41 Dose: 20 ml Documented by: Discharge Activity: - - Please abide by continued quarantine parameters until completion on 08/11/19 per discussions. Please avoid aggressive activity until clinically improved and assure blood pressures remain appropriate. May resume sexual activity in: - - Avoid until complete quarantine. Weight Bearing Status: Weight bearing as tolerated Call your doctor if you observe: Fever of 101 or Higher, Inability to urinate, Inability to have a bowel movement, Shortness of breath, Dizziness, Fainting spells, Chest pain, Uncontrolled pain Home Medications: Medications to take at Discharge Levothyroxine [Synthroid] 137 mcg PO DAILY 06/26/16 Sertraline HCl [Zoloft] 50 mg PO DAILY 06/26/16 Aspirin 81 mg PO 08/05/19 Famotidine 40 mg PO DAILY 08/05/19 Losartan Potassium 50 mg PO DAILY 08/05/19 Metoprolol Tartrate [Lopressor (beta ernestine)] 25 mg PO BID #60 tab 08/06/19 Following Prescrptions Were Given to Patient: Metoprolol Tartrate [Lopressor (beta ernestine)] 25 mg PO BID #60 tab Transmission Status: Received by [facility] Primary Care Physician: Lee Montelongo MD [Primary Care Provider] - Please follow up with your Primary Care Physician in: Please follow-up within 3-5 days to review admission, med changes. Patient Instructions: Controlling High Blood Pressure, Low-Salt Choices, Taking Blood Pressure Medications Disposition: Home Minutes spent on discharge:: 35 Patient Condition:: Fair Medical Necessity - Tobacco Use Smoking Status: Former smoker Tobacco Use: Cigarettes Meaningful Use Info Meaningful Use Diagnoses (Choose all that apply): None applicable OBSV E&M: 01524 Observation care discharge
[2019-08-06] MEDS: Loratadine 10 MG Tablet PO (09:07)
[2019-08-06] MEDS: Sertraline 50 MG Tablet PO (09:08)
[2019-08-06] MEDS: Metoprolol Tartrate 25 MG Tablet PO (09:08)
[2019-08-06] MEDS: Losartan Potassium 50 MG Tablet PO (09:08)
[2019-08-06] MEDS: Famotidine 20 MG Tablet PO (09:09)
[2019-08-06] MEDS: Acetaminophen 325 MG Tablet 650 MG PO (11:54)
--- NOTE | 2019-08-06 12:53 | CHAPLAIN ---
Type of Pastoral Visit ___ Initial Visit ___ Follow-up Visit ___ On-call Visit ___ General Patient Visit ___ Spiritual Assessment ___ Family Conference ___ Bereavement ___ Rapid Response ___ Code Blue _x__ Other (describe below) Pastoral Care Referral From _x__ Patient ___ Family ___ Nurse ___ Physician ___ Pharmacy Director ___ Bi Application Developer ___ Other (describe below) Sacrament/Intervention _x__ Active listening ___ Anointing ___ Spiritism ___ Bereavement ___ Communion ___ Wen exploration ___ ___ Life review _x__ Prayer ___ Reconciliation ___ Sacrament of Sick ___ Supportive presence ___ Wedding ___ Other (describe below) Pastoral Comments as patient is under precautions a phone call was made to talk with pt; pt answered and was agreeable to phone call support; pt also agreeable to prayer support
--- NOTE | 2019-08-06 15:44 | NURSING ---
echo being done@ bedside
== END 2019-08-06 16:07 | disposition home or self-care (01) ==
LOC: ED 17:09 → PCU 18:50 → ICU 18:50
PROVIDERS: Admitting Provider Internal Medicine; Emergency Provider Emergency Medicine; PCP Family Medicine; Visit Provider Family Medicine
DX: I16.0 Hypertensive urgency (principal); E03.9 Hypothyroidism, unspecified; K21.9 Gastro-esophageal reflux disease without esophagitis; F32.9 Major depressive disorder, single episode, unspecified; E87.6 Hypokalemia; E87.1 Hypo-osmolality and hyponatremia; R00.8 Other abnormalities of heart beat; I10 Essential (primary) hypertension; Z79.899 Other long term (current) drug therapy; Z79.82 Long term (current) use of aspirin; Z87.891 Personal history of nicotine dependence; Z20.828 Contact with and (suspected) exposure to other viral communicable diseases
CPT/HCPCS: 71045; 80048; 80053; 83735; 83880; 84443; 84484; 85025; 85379; 86769; 87635; 93005; 93306; 97802; 99218; 99285; J7040; A4216; G0378; U0003

== ENCOUNTER 2019-08-18 09:00 | Outpatient (RCR) | payer OTHER, SELFPAY ==
[2019-08-05 18:30] VITALS: BMI 23.6
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
--- NOTE | 2019-08-18 12:56 | BH.DR.ITP ---
Initial Treatment Plan - Patient Information Visit Information: ADMISSION DATE: EXPECTED LOS: 4-6 weeks - Problems/Symptoms Problem #1:: Anxiety Symptom:: Rumination, worry ,fatigue Problem #2:: Depression Symptom:: Sadness, crying, decreased concentration, anger
--- NOTE | 2019-08-19 10:19 | BH.SGPN.GN ---
This psychotherapy group was provided via telehealth using two-way, real-time interactive telecommunication technology between the patients and the provider. The interactive telecommunication technology included audio and video. The patient was offered telemedicine as an option for care delivery during the COVID-19 pandemic and consented to this option. Patient location: [place] Provider located at [facility] Behaviors/Verbalizations/Mental Status: []Client alert and orient. Appearance casual and appropriately groomed. Speech an appropriate rate and tone. Motor activity WNL. Mood anxious, affect congruent. No evidence of delusion or hallucinations.? Client Response/Progress/Benefit: []Client responded well to session, attentive and contributing to discussion. Group discussed benefits of healthy communications on mental health which included: getting help, better relationships, less misinterpretations, and improved emotional regulation. Group additionally discussed potential barriers to communication including: shutting down, tone of voice, assumptions, yelling, passive aggressive behaviors, and poor emotional regulation. Client stated she notices when she is stressed out her communication becomes more ?brutally honest? and shared she has been told she does not have a filter. Attentive during psychoeducation on the four communication styles. Client self-reports identifying most with the aggressive and passive-aggressive communication styles at work, but client feels she is passive with her daughter. Client shared when she is passive with her daughter ?I just let her bulldoze right through me.? Progress noted in increased insight into personal communication styles and barriers. Client to continue in IOP tx prevent decompensation of symptoms and improve daily functioning. Narrative Note: []
--- NOTE | 2019-08-20 09:00 | BH.SGPN.GN ---
This psychotherapy group was provided via telehealth using two-way, real-time interactive telecommunication technology between the patients and the provider. The interactive telecommunication technology included audio and video. The patient was offered telemedicine as an option for care delivery during the COVID-19 pandemic and consented to this option. Patient location: [place] Provider located at [facility] Behaviors/Verbalizations/Mental Status: [] Client alert and oriented, casual dress. Eye contact goodt, tearful when contributing to group. Motor activity appropriate. Speech within normal limits. Affect unable to gather due to client participating via telehealth, mood anxious, depressed. Thoughts linear, logical, no signs of hallucinations or delusions. Reviewed client?s symptom tracker, no signs of suicidal ideation, plan, or intent as of today. Client Response/Progress/Benefit: [] Pt new to IOP program, she responded well to session and appeared to connect to peers. Reports feeling overwhelmed today as she has been struggling the past several months to adjust to restrictions put in place as a result of the COVID-19 pandemic. Pt expressed feeling depressed and lonely as she hasn?t been able to see her grandson since the start of the stay at home orders in April. Pt went on to indicate increased anger and frustration about others not adhering to the COVID-19 precautions recommended by [place] governor. Pt was receptive of and appeared to benefit from the support and encouragement provided by the group. Expressed wanting to improve her ability to better cope and manage symptoms during this time. Will continue IOP tx to increase coping skills which promote mood stability, improve daily functioning, and reduce intensity of symptoms. Narrative Note: []
--- NOTE | 2019-08-23 11:15 | BH.SGPN.GN ---
This psychotherapy group was provided via telehealth using two-way, real-time interactive telecommunication technology between the patients and the provider.?The interactive telecommunication technology included audio and video.? ?The patient was offered telemedicine as an option for care delivery during the COVID-19 pandemic and consented to this option. ?Patient location: [place] ?Provider located at [facility] Behaviors/Verbalizations/Mental Status: []Client alert and oriented, casually dressed, hygiene appeared to be tended to. Eye contact good. Motor activity appropriate. Speech within normal limits. Affect congruent to mood, mood anxious. Thoughts linear, logical, no signs of hallucinations or delusions Client Response/Progress/Benefit: []Client responded well to session, attentive and sharing at times. Group discussed the negative consequences of not acknowledging one?s strengths. Connected with the benefits of recognizing personal strengths on improving mental health which included: increased self-confidence, increased willingness to try new things, and better management of symptoms. Client able to identify personal strengths she possesses which includes: honesty, persistence, and intelligence. Client reported identified strengths have supported mental health progress in the past. Client shared being honest helped client get the help she needed, but her honesty has also gotten client in trouble in the past. Group discussed strategies to help them acknowledge strengths more often. Appeared to benefit from recognizing personal strengths and identifying strategies to increase recognition of strengths. Will continue IOP tx to prevent decompensation, learn healthy coping skills, and improve work-related functioning. Narrative Note: []
--- NOTE | 2019-08-27 09:00 | BH.SGPN.GN ---
This psychotherapy group was provided via telehealth using two-way, real-time interactive telecommunication technology between the patients and the provider.?The interactive telecommunication technology included audio and video.? ?The patient was offered telemedicine as an option for care delivery during the COVID-19 pandemic and consented to this option. ?Patient location: [place] ?Provider located at [facility] Behaviors/Verbalizations/Mental Status: []Client alert and oriented, neatly dressed and groomed. Eye contact good. Motor activity appropriate. Speech within normal limits. Affect constricted, mood anxious. Thoughts linear, logical, no signs of hallucinations or delusions. Reviewed client?s symptom tracker, no risk for suicidal ideation, plan, or intent as of 08/27/19. Client Response/Progress/Benefit: []Client was attentive and appeared to be connected AEB eye contact. However, client declined to share when asked to check-in with the group. Client nodded at times while others were sharing and did not appear in any acute distress. Client still appeared to benefit from connecting with others and coming to group rather than isolating. Will continue IOP tx to promote the use of healthy coping skills and improve mood stability. Narrative Note: []
--- NOTE | 2019-08-27 10:03 | BH.SGPN.GN ---
This psychotherapy group was provided via telehealth using two-way, real-time interactive telecommunication technology between the patients and the provider. The interactive telecommunication technology included audio and video. The patient was offered telemedicine as an option for care delivery during the COVID-19 pandemic and consented to this option. Patient location: [place] Provider located at [facility] Behaviors/Verbalizations/Mental Status: []Client alert and oriented, casual dress, hygiene tended to. Eye contact fair. Motor activity appropriate. Speech within normal limits. Affect constricted. mood anxious. Thoughts linear, logical, no signs of hallucinations or delusions. Client Response/Progress/Benefit: []Pt engaged in session AEB pt providing input at times during discussion and listening attentively to peers. Pt reported sometimes after setting a boundary she won't follow through with the boundary because feels too guilty. Seemed to recognize how lack of follow through with boundaries impacts her mental health negatively. Pt assisted group with identifying that boundaries can impact the following: how much someone takes advantage of you, either bring people closer or push people away, keep us safe, reduce the risk of peer pressure, impact positive or negative self-worth. Pt seemed to benefit from increased awareness of how poor boundaries can negatively impact mental health. Will continue IOP tx to increase use of healthy coping, work on self-forgiveness from past mistakes, and prevent decompensation. Narrative Note: []
--- NOTE | 2019-08-27 15:23 | BH.MDN ---
Multi-Disciplinary Note - Note 45-min Individual Time Started:: 11:12 Date: 08/27/19 Time Stopped:: 11:56
--- NOTE | 2019-09-09 17:24 | BH.DS ---
Discharge Summary - Demographics Discharge Date: 09/09/19 - Treatment Discharge Handout: Complete Discharge Handout with client on aftercare options and continuity of care.
== END 2019-09-09 14:00 | disposition home or self-care (01) ==
LOC: BHIOP 09:00
PROVIDERS: PCP Family Medicine; Referring Provider Psychiatry & Neurology Psychiatry; Visit Provider Psychiatry & Neurology Psychiatry
DX: F33.1 Major depressive disorder, recurrent, moderate (principal); F41.1 Generalized anxiety disorder; F40.10 Social phobia, unspecified; E03.9 Hypothyroidism, unspecified; Z86.19 Personal history of other infectious and parasitic diseases; Z79.899 Other long term (current) drug therapy; Z87.891 Personal history of nicotine dependence
CPT/HCPCS: H0035; 90834; 90853

== ENCOUNTER → 2019-09-24 12:57 | Outpatient (CLI) | payer OTHER, SELFPAY ==
[2019-08-05 18:30] VITALS: BMI 23.6
--- NOTE | 2019-09-24 13:01 | CT_ITS ---
STUDY: LOW DOSE CT LUNG CANCER SCREENING REASON FOR EXAM: Female, 59 years old. FORMER SMOKER QUIT 01/2017. PRIOR TO QUIT ING WAS 1/2 PPD X 43 YEARS. RADIATION DOSAGE (If Supplied By Facility): CTDIvol = ( 1.70 ) mGy, DLP = ( 63.59 ) mGycm TECHNIQUE: No contrast was administered. Low dose technique was utilized (average mAS-38 and kVp 120). 1.25 mm axial source images with a slice interval of 1.25-mm were reconstructed in lung windows. 2.5 mm axial source images with a slice interval of 2.5-mm were reconstructed in lung windows. 5.0 mm axial source images with a slice interval of 5.0-mm were reconstructed in soft tissue windows. Nodule measured using lung windows on PACS and/or independent workstation with automated measurement of minimum and maximum diameter. Nodule measurement reported as average diameter rounded to the nearest whole number. Growth is defined as an increase ins size of greater than 1.5 mm. COMPARISON: Comparison is made with prior chest radiograph dated 08/05/2019. NODULES: No nodules are seen. Emphysema: Mild degree of emphysematous changes. Azygos lobe is present in the right upper lobe. This is a normal variant. Aorta: Mild degree of atherosclerotic plaque formation of the aortic arch. Coronary arteries: Coronary artery calcification. Heart: Unremarkable Pulmonary artery: Unremarkable. Mediastinal nodes: Small mediastinal lymph nodes are seen. Other chest and abdominal findings: Bilateral breast implants. CT/Low Dose CT Lung Screening IMPRESSION: Lung-RADS category 2 - Continue annual screening with LDCT in 12 months. IMPORTANT NOTES FOR USE: ACR Lung-RADS Version 1.0 Assessment Categories Release Date: June 14, 2013 Category: Coded 0-4 bases on nodule(s) with highest degree of suspicion. Negative screen is defined as categories 1 and 2; a positive screen is defined as categories 3 and 4. Category 3 and 4A nodules that are unchanged on interval CT should be coded as category 2, and individuals returned to screening in 12 months. Category 4X: Category 3 or 4 nodules with additional imaging findings that increase the suspicion of lung cancer, such as spiculation, GGN that doubles in size in 1 year, enlarged lymph notes, etc. Category Modifiers: S (significant finding unrelated to lung cancer) and C (prior history of treated lung cancer) may be added to the 0-4 Lung-RADS Electronically Signed: Ever White, at 13:44 EDT , Service support ,
--- NOTE | 2019-09-24 13:14 | BI_ITS ---
MAMMOGRAPHY - BILATERAL SCREENING REASON FOR EXAM: Female, 59 years old. Routine annual screening examination. PERTINENT HISTORY: Non-contributory. Bilateral breast implants. TECHNIQUE: Digital bilateral breast anastasia (3D mammographic acquisition) in the CC and MLO projections. 2-D mediolateral oblique (MLO) and craniocaudad (CC) views of both breasts were obtained. CAD: Full Field Digital Mammography with Computer Added Detection was performed. COMPARISON: None. Baseline examination. FINDINGS: Breast Composition: The breasts are heterogeneously dense, which may obscure small masses. There are no dominant masses or suspicious calcifications. Bilateral breast implants are seen. No other significant abnormalities are identified. BI/SCREEN MAMM (CAD) W/ANASTASIA BILAT IMPRESSION: Negative screening mammogram. Yearly followup mammogram recommended. (A) ASSESSMENT CATEGORY: BIRADS Category 2: Benign. A letter regarding these results will be sent to the patient by the facility within 30 days. Approximately 10% of breast cancers are not detected by mammography. A normal mammogram should not delay biopsy of a clinically suspicious abnormality. [id number] Electronically Signed: Ever White, at 14:03 EDT , Service support ,
== END ==
PROVIDERS: PCP Family Medicine; Referring Provider Family Medicine; Visit Provider Family Medicine
DX: Z12.2 Encounter for screening for malignant neoplasm of respiratory organs (principal); Z87.891 Personal history of nicotine dependence; Z12.31 Encounter for screening mammogram for malignant neoplasm of breast
CPT/HCPCS: 77063; 77067; G0297

== ENCOUNTER → 2019-12-08 14:01 | Outpatient (CLI) | payer OTHER, SELFPAY ==
[2019-08-05 18:30] VITALS: BMI 23.6
[2019-12-10 07:18] LABS: SARS-COV-2 TOTAL ABS Nonreactive (Nonreactive)
== END ==
PROVIDERS: PCP Family Medicine; Referring Provider Family Medicine; Visit Provider Family Medicine
DX: Z20.828 Contact with and (suspected) exposure to other viral communicable diseases (principal)
CPT/HCPCS: 36415; 86769

== ENCOUNTER → 2020-12-13 08:40 | Outpatient (CLI) | payer OTHER, SELFPAY ==
[2020-12-13 10:22] LABS: T4 Free Direct 0.89 ng/dL (0.76-1.46)
[2020-12-13 14:28] LABS: Microalbumin,Random Urine 15.8 mg/L (NO RANGE EST.)
== END ==
PROVIDERS: PCP Family Medicine; Referring Provider Family Medicine; Visit Provider Family Medicine
DX: I10 Essential (primary) hypertension (principal); E03.9 Hypothyroidism, unspecified
CPT/HCPCS: 36415; 82043; 82570; 84439; 84443

== ENCOUNTER → 2020-12-15 16:19 | Outpatient (CLI) | payer OTHER, SELFPAY | PROVIDERS: PCP Family Medicine; Referring Provider Family Medicine; Visit Provider Family Medicine | DX: R30.0 Dysuria (principal) | CPT/HCPCS: 87086; 87088; 87186 ==

== ENCOUNTER 2021-05-12 14:19 | Outpatient (CLI) | payer OTHER, SELFPAY ==
[2021-05-12 14:52] LABS: Mucous, Urine 0 SEEN /hpf (<or=2+); Squamous Epithelial Cells - UA 0 SEEN /hpf (5-10)
[2021-05-12 15:24] LABS: Color, Urine Yellow (Yellow); Glucose, Dipstick Normal (Normal); Ketone-Dipstick Negative (Negative); Leukocyte Esterase-Dipstick 500 /ul (Negative); Nitrite-Dipstick Positive (Negative); Occult Blood-Urine 250 /ul (Negative); Protein-Dipstick 30 mg/dl (Negative); Urine Clarity Cloudy (Clear); Urine Urobilinogen 4 mg/dl (Normal)
[2021-05-12 15:28] LABS: Urine Bilirubin Dipstick 3 mg/dL (Negative)
[2021-05-12 15:36] LABS: Bacteria 4+ /hpf (None Seen); Red Blood Cells-Urine 0-5 SEEN /hpf (0-5); White Blood Cells 25-50 SEEN /hpf (0-5)
== END 2021-05-12 23:59 | disposition home or self-care (01) ==
PROVIDERS: PCP Family Medicine; Visit Provider Physician Assistant
DX: N39.0 Urinary tract infection, site not specified (principal)
CPT/HCPCS: 81001; 87086; 87088; 87186

== ENCOUNTER 2021-07-18 14:30 | Outpatient (RCR) | payer OTHER, SELFPAY ==
--- NOTE | 2021-03-21 14:57 | HP.OTEVAL ---
Patient's Visit Information AGUILA BEJARANO is a 60 year old F, referred to Occupational Therapy by Dr. Lee Montelongo MD, with a diagnosis of bilateral cmc arthritis with mp subluxation/ bilateral arthritis. Date of Evaluation: 03/21/21 Occupational Therapist: Yoly Canela, OTR/[place]at, CHT - Subjective This 60 year old female was seen for OT eval with dx of hand arthritis with 1st mcp subluxation- pt states she has had increase difficulty with performing her ADLs and IADLs due to bilateral thumb pain. 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 with ADLs. - ADLs Kitchen: Chop with knife, Peel fruits & vegetables, Open jars, Open bottle caps Miscellaneous: Use cell phone, Write, Use computer keyboard - Pain right 2 left 0 - ROM Wrist: right 55/40 left 60 45 CMC: right 10 left 15 MP: right 50 left 55 IP: right 55 left 60 Radial Abduction: right 40 left 55 Palmar Abduction: right/left WFL ROM Comments: pt demo with bilateral cmc arthritis- pt has CMC collapse with mp hyperextension with use of pinch- indicating sig. instability - Strength Marketing Campaign Analyst: 40# left 40# Lateral Pinch: right 4# left 4# Tripod Pinch: right 2# left 6# - Sensation Sensation Comments: denies - Goals Goal:: pt will report no pain greater than 1/10 with use of bilateral hand for ADls with use of supportive bracing by d.c Goal:: Pt will demo understanding of joint protection and ergonomics when performing BADLs and IADLs by d/c. Pt will demo understanding of work/lifting and carry ergonomics to decrease stress on tendons/joints to increase pts independent with ADLs, IADLS and work tasks by d/c. Pt will demo understanding of adaptive Equipment use to decrease stress on joints to allow pt to perform BADSL and IADLS at STEVEN level. Goal:: pt will demo ind. doffing/donning supportive cmc with MP bracing to limit stress on tendons and improve hand function with ADLS. in 3 weeks. - Rehabilitation General Assessment: pt demo with bilateral CMC arthritis with subluxation (more on left than right at MP) this increases pain due to the joint instabilities- pt has increase pain with bilateral hands when she uses them for ADLs and IADLS. pt would benefit from skilled OT services 1x week for 3 weeks to ed. pt on dx, joint protection, ergo and use of bracing- or supportive tape. Pt demo understanding and agrees to POC. Rehabilitation Potential: Good - Anticipated Interventions Modalities, Orthoses, Joint Protection/Energy Conservation, Ergonomic Education, Education re assistive Equipment, Education re Diagnosis, Home Program - Visit Plan Frequency: 1x/Week Duration: 3 Weeks TEXT: Thank you for the opportunity to evaluate your patient. For Medicare and Medicare HMO plans, please review the plan of care and approve it. It will need to be FAXED BACK to us at [phone] for Medicare purposes. Please let me know if there are questions or concerns regarding this plan of care. Physician Signature: Date:
--- NOTE | 2021-05-23 15:44 | OTREVAL_ITS ---
Dr. Keely Brasher MD, It has been my pleasure to treat AGUILA BEJARANO over the last 5 visits for bilateral cmc arthritis with mp subluxation/ bilateral arthritis. Please see the progress note below for an update on the occupational therapy plan of care! Subjective: pt arrives 2 weeks and 2 days s/p from a CMC arthroplasty- DeQuervain's tenosynovectomy, thumb adductor release MCP volar plate advancement- Partial trapezoid excision-. pt arrives with custom orthosis on - bruising at elbow and hematoma at forearm incision - pt reports she is doing ok - feeling better each day- Objective/Function: Pt demo with left wrist ROM at 20/35. IP flexion at 20. no significate swelling at all in fingers. and fingers are all moving well- pt forming light composite fist. incisions clean and dry Plan Frequency: 1x/Week Duration: 2 Months Visits in this POC: 10 Plan: 10 days- 2 weeks s/p. Rigid WHFO thumb spica in stable cmc position or HFO thumb spica (per dr. banerjee). 4 weeks s/p splint cut WHFO thumb spica down to hand based thumb spica. Begin thumb cmc motion. scar/edema mtg. modalities for pain/edema. 6 weeks s/p. comfort cool brace- orthoplast splint at night. begin gentle strengthening with putty and progress as george. avoid forceful extension of thumb. 8 weeks s/p. full discontinuation of orthoplast splint by 8 weeks except for heavy activity prn. progress to wrist strengthening and heavier prehension tasks. avoid forceful extension of the thumb. Expectations. 2 months to resume normal activities, 3 months for strenuous. 3- 6 months to reach optimum results. slight decrease in pinch and telegraph printer mechanic strength. generally, gain 70% of strength and motion of unoperated hand. will continue with pt 1x week for 8 weeks unless otherwise specified. Goals - Goals Patient Goals: Decrease Pain, Use Hand/Wrist/Arm Normally Again Goal:: pt will report no pain greater than 1/10 with use of bilateral hand for ADls with use of supportive bracing by d.c Goal:: Pt will demo understanding of joint protection and ergonomics when performing BADLs and IADLs by d/c. Pt will demo understanding of work/lifting and carry ergonomics to decrease stress on tendons/joints to increase pts independent with ADLs, IADLS and work tasks by d/c. Pt will demo understanding of adaptive Equipment use to decrease stress on joints to allow pt to perform BADSL and IADLS at STEVEN level. Goal:: pt will demo ind. doffing/donning supportive cmc with MP bracing to limit stress on tendons and improve hand function with ADLS. in 3 weeks. Tendon Goals: 100% adherence to protocol Goal:100% adherence to protocol: Yes - Dr. Brasher CMC arthroplasty protocol Goal:Daily scar massage when approriate: Yes Goal:Wind Turbine Electrical Engineer/Pinch strength at least 75% of unaffected hand: Yes Goal:No pain with affected hand use: Yes Goal:Full use of affected hand in daily activities including: Yes Anticipated Interventions Anticipated Interventions: Modalities, Orthoses, Joint Protection/Energy Conservation, Ergonomic Education, Education re assistive Equipment, Education re Diagnosis, Home Program Please do not hesitate to contact me at [phone] by phone or if you have questions or concerns regarding this new plan of care! Sincerely, Yoly Canela, OTR/L, CHT
== END 2021-07-18 19:00 | disposition home or self-care (01) ==
LOC: OT 14:30
PROVIDERS: PCP Family Medicine; Referring Provider Orthopaedic Surgery Hand Surgery; Visit Provider Orthopaedic Surgery Hand Surgery
DX: S63.21 Subluxation of metacarpophalangeal joint of finger (principal); M19.049 Primary osteoarthritis, unspecified hand
CPT/HCPCS: 97035; 97110; 97140; 97166; 97530

== ENCOUNTER → 2022-07-02 | Outpatient (CLI) | payer OTHER, SELFPAY ==
[2022-07-02 18:51] LABS: ALB/GLOB Ratio 1.2 RATIO (0.9-2.4); AST(SGOT) 17 U/L (15-37); Alanine Aminotransfer ALT/SGPT 30 U/L (13-56); Albumin, Serum 4.1 g/dL (3.2-5.0); Alkaline Phosphatase 106 U/L (45-117); BUN 21 mg/dL (7-18); BUN/Creat Ratio 31.4 RATIO (10-20); Calcium,Total 9.3 mg/dL (8.5-10.1); Chloride 103 mmol/L (98-107); Creatinine, Serum 0.67 mg/dL (0.55-1.02); EST Glomerular Filtration Rate 94 mL/min (>60); Est Glom Filt Rate - Afr Amer 114 mL/min (>60); Globulin 3.4 g/dL (2.2-4.2); Glucose 133 mg/dL (74-106); Potassium 3.1 mmol/L (3.5-5.1); Protein, Total 7.5 g/dL (6.4-8.2); Sodium Level 138 mmol/L (136-145)
[2022-07-02 18:52] LABS: Anion Gap 8 (5-15); T4 Free Direct 0.86 ng/dL (0.76-1.46)
== END | disposition home or self-care (01) ==
LOC: MFPLAB 14:14
PROVIDERS: PCP Family Medicine; Visit Provider Family Medicine
DX: I10 Essential (primary) hypertension (principal); E03.9 Hypothyroidism, unspecified
CPT/HCPCS: 36415; 80053; 84439; 84443

== ENCOUNTER 2022-07-29 14:30 | Outpatient (RCR) | payer OTHER, SELFPAY ==
--- NOTE | 2022-06-19 15:41 | HP.OTEVAL_ITS ---
Patient's Visit Information AGUILA BEJARANO is a 61 year old F, referred to Occupational Therapy by Dr. 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 Date of Evaluation: 06/19/22 Occupational Therapist: Yoly Canela, ELLEN/Montserrat, CHT - Subjective This 61 year old female was seen for OT eval with dx of bilateral primary osteoarthritis of first carpometacarpal joints. pt states she struggled with pain and discomfort for more than 3 years. She had her left CMC arthroplasty last year and now decided due to increase pain an decreased ind. with ADl to have her right done, Pt underwent a right Carpometacarpal ligament reconstruction tendon interposition- DeQuervain's tenosynovectomy thumb adductor release on 06/04/22. pt arrives 3 weeks s.p from CMC arthroplasty with orthosis on. States she feels this recovery from sx is going well. 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 pt is hopeful to return in about 3 months. - ADLs Dressing: Button shirt, Pants, Shoes Fasteners: Tie shoes, Buttons, Zippers Eating: Bring food to mouth, Use silverware, Drink from glass - Pain right wrist/thumb 3 Pain Intensity Range: 2, 5 - ROM Wrist: right wrist 30/10 left 60/60 CMC: right NT left 20 MP: right 25 left 30 IP: right 20 left 65 Opposition: Kapandji opposition scale right left 10 - Sensation Sensation Comments: slight tingle on ulnar side of right thumb - Quick DASH-Disab of Arm,Shoulder& Hand Quick DASH Score: 83.3325 - Goals Goal:100% adherence to protocol: Yes Comment: Dr. Brasher's CMC arthroplasty guidelines Goal:Daily scar massage when approriate: Yes Goal:ROM equal to unaffected hand: Yes Goal:[employer]/Pinch strength at least 75% of unaffected hand: Yes Goal:No pain with affected hand use: Yes Goal:Full use of affected hand in daily activities including: Yes Goal:Decrease scar hypersensitivity: Yes - Rehabilitation General Assessment: Pt arrives 3 weeks s/p from right CMC arthroplasty with ligament reconstruction tendon interposition- DeQuervain's tenosynovectomy and thumb adductor release- pt is right handed and limited with bilateral hand tasks as well as all ADl and IADLs as to allow reconstruction to heal. Pt would benefit from skilled OT services 1-2 x week for 6 weeks to return pt to her PLOF. Today therapist ed. pt on short arch wrist ROM, scar mtg. and IP flexion ex. pt demo understanding and agree to POC. Rehabilitation Potential: Excellent - Anticipated Interventions A/AAROM/PROM, Strengthening, Scar Care, Triggerpoint Release, Desensitization, Modalities, Orthoses, Joint Protection/Energy Conservation, Ergonomic Education, Fine Motor Coord/Jose Alberto, Education re assistive Equipment, Education re Diagnosis, Home Program - Visit Plan Frequency: 1-2x /Week Duration: 6 Weeks General Plan: Dr. Brasher CMC arthroplasty. Week 2: exercise- AROM performed for digits and thumb IP joint only Begin short arc wrist motion - initiate scar mtg. Week 4: cut WHFO thumb spica down to hand based thumb spica -Begin PROM to wrist if tight- AROM for thumb CMC- joint- cont. scar mtg/edema control (modalities as indicated for pain and edema. Week 6: comfort cool splint orthoplast splint at night and heavy activity. Exercise: start gentle strengthening(thera-putty), progress as tolerated. Progress to wrist strengthening and heavier prehension tasks at 8 weeks post-operative. *Avoid forceful extension of thumb *. Week 8 D/C orthoplast splint by week 8 except for heavy activity PRN -progress to wrist strengthening and heavier prehension tasks. *Avoid forceful extension of the thumb*. Expectations: Most patients are treated with a Home Program and checked after each MD visit for program progression 2x weekly for 4-6 weeks for symptomatic patients or those returning to heavier work demands. 2 months to resume normal activities, 3 months for strenuous. 3-6 months to reach optimum results. slight decrease in pinch and track superintendent strength. generally, gain 70% of strength and motion of unoperated hand. TEXT: Thank you for the opportunity to evaluate your patient. For Medicare and Medicare HMO plans, please review the plan of care and approve it. It will need to be FAXED BACK to us at [phone] for Medicare purposes. Please let me know if there are questions or concerns regarding this plan of care. Physician Signature: Date:
--- NOTE | 2022-10-10 11:42 | HP.OT.NRP ---
Patient Information Patient Information: AGUILA BEJARANO was seen in my office for initial evaluation on 06/19/22. The following Plan of Care was established for this patient: POC Established Initial Frequency: 1-2x /Week Initial Duration: 6 Weeks Plan: pre as tolerated Anticipated Interventions Anticipated Interventions: A/AAROM/PROM, Strengthening, Scar Care, Triggerpoint Release, Desensitization, Modalities, Orthoses, Joint Protection/Energy Conservation, Ergonomic Education, Fine Motor Coord/Jose Alberto, Education re assistive Equipment, Education re Diagnosis and Home Program Last Seen Last Seen: This patient was last seen in our office 07/29/22. Pertinent comments regarding their Occupational therapy will appear below: pt was seen for 6 OT session following cmc arthroplasty- pt at this time has not scheduled further apts and is d.c due to time lapse in services. At this point I will be discontinuing this patient from occupational therapy. I would be happy to see this patient again in the future if found appropriate by the physician. Thank you! Yoly Canela, OTR/L, CHT
== END 2022-07-29 19:00 | disposition home or self-care (01) ==
LOC: OT 14:30
PROVIDERS: PCP Family Medicine; Referring Provider Orthopaedic Surgery Hand Surgery; Visit Provider Orthopaedic Surgery Hand Surgery
DX: M18.0 Bilateral primary osteoarthritis of first carpometacarpal joints (principal)
CPT/HCPCS: 97035; 97110; 97140; 97166

== ENCOUNTER → 2023-09-16 | Outpatient (CLI) | payer MEDICARE, OTHER, SELFPAY ==
[2023-09-16 11:03] LABS: AST(SGOT) 20 U/L (15-37); Alanine Aminotransfer ALT/SGPT 29 U/L (13-56); Albumin, Serum 3.6 g/dL (3.2-5.0); Alkaline Phosphatase 111 U/L (45-117); Anion Gap 8 (5-15); BUN 16 mg/dL (7-18); BUN/Creat Ratio 20.3 RATIO (10-20); Calcium,Total 8.9 mg/dL (8.5-10.1); Chloride 105 mmol/L (98-107); Cholesterol 254 mg/dL (200); Creatinine, Serum 0.79 mg/dL (0.55-1.02); EST Glomerular Filtration Rate 78 mL/min (>60); Est Glom Filt Rate - Afr Amer 94 mL/min (>60); Free T3 1.4 pg/mL (2.18-3.98); Globulin 3.5 g/dL (2.2-4.2); Glucose 109 mg/dL (74-106); High Density Lipoprotein 48 mg/dL; Potassium 3.9 mmol/L (3.5-5.1); Protein, Total 7.1 g/dL (6.4-8.2); Sodium Level 138 mmol/L (136-145); T4 Free Direct 0.49 ng/dL (0.76-1.46); Triglycerides 427 mg/dL
[2023-09-16 12:42] LABS: Microalbumin,Random Urine 30.7 mg/L (NO RANGE EST.); Microalbumin:Creatinine Ratio 38.5 mg/g CRE (<30 mg/g CRE)
== END | disposition home or self-care (01) ==
LOC: MTLAB 09:05
PROVIDERS: PCP Family Medicine; Referring Provider Family Medicine; Visit Provider Family Medicine
DX: I10 Essential (primary) hypertension (principal); E03.9 Hypothyroidism, unspecified; F41.9 Anxiety disorder, unspecified
CPT/HCPCS: 36415; 80053; 80061; 82043; 82140; 82570; 84439; 84443; 84481

== ENCOUNTER → 2023-11-11 | Outpatient (CLI) | payer MEDICARE, OTHER, SELFPAY ==
[2023-11-11 13:56] LABS: Cholesterol 214 mg/dL (200); High Density Lipoprotein 46 mg/dL; T4 Free Direct 1.46 ng/dL (0.76-1.46); Thyroid Stim Hormone (TSH) 0.267 uIU/mL (0.358-3.740); Triglycerides 272 mg/dL; Very Low Density Lipoprotein 54 mg/dL (5-40)
== END | disposition home or self-care (01) ==
PROVIDERS: PCP Family Medicine; Referring Provider Family Medicine; Visit Provider Family Medicine
DX: E03.9 Hypothyroidism, unspecified (principal)
CPT/HCPCS: 36415; 80061; 84439; 84443